=== PATIENT | male | born 1995 | race Two or more races ===

== ENCOUNTER 2024-12-19 14:31 | Emergency (ER) | payer OTHER ==
[~2024-12-19] VITALS: Ht 180.3 cm; Wt 59.0 kg
[2024-12-19 14:37] VITALS: BP 110/70; O2SAT 97
[2024-12-19] MEDS ORDERED: KETOROLAC TROMETHAMINE 60 MG VIAL IM STA (15:22)
[2024-12-19] MEDS ORDERED: KETOROLAC TROMETHAMINE 60 MG VIAL IM ONE (15:28)
== END 2024-12-19 16:10 | disposition home or self-care (01) ==
LOC: ER 14:34
DX: S20.219A Contusion of unspecified front wall of thorax, initial encounter (principal); S20.221A Contusion of right back wall of thorax, initial encounter; X58.XXXA Exposure to other specified factors, initial encounter; Y93.89 Activity, other specified; Y92.89 Other specified places as the place of occurrence of the external cause; Y99.9 Unspecified external cause status